=== PATIENT | male | born 1985 | race Two or more races ===

== ENCOUNTER 2020-12-10 22:33 | Emergency (ER) | payer SELFPAY ==
[~2020-12-10] VITALS: Ht 170.2 cm; Wt 75.0 kg
[2020-12-10 22:35] VITALS: BP 149/78
[2020-12-11] MEDS ORDERED: TRAMADOL 50MG TABLET PO ONE
== END 2020-12-11 03:00 | disposition home or self-care (01) ==
LOC: ER 22:33
DX: S01.21XA Laceration without foreign body of nose, initial encounter (principal); S00.83XA Contusion of other part of head, initial encounter; F12.10 Cannabis abuse, uncomplicated; Z98.890 Other specified postprocedural states; V29.88XA Motorcycle rider (driver) (passenger) injured in other specified transport accidents, initial encounter; Y93.55 Activity, bike riding; Y92.89 Other specified places as the place of occurrence of the external cause; Y99.8 Other external cause status
CPT/HCPCS: 70486; 73130; 99285

== ENCOUNTER 2020-12-15 10:44 | Emergency (ER) | payer MEDICAID ==
[~2020-12-15] VITALS: Ht 167.6 cm; Wt 134.0 kg
[2020-12-15 12:43] VITALS: BP 134/89
== END 2020-12-15 12:44 | disposition home or self-care (01) ==
LOC: ER 11:09
DX: Z48.01 Encounter for change or removal of surgical wound dressing (principal)
CPT/HCPCS: 29125; 99283

== ENCOUNTER 2025-05-28 12:04 | Emergency (ER) | payer BC, MEDICAID ==
[~2025-05-28] VITALS: Ht 172.7 cm; Wt 72.0 kg
[2025-05-28 12:19] VITALS: O2SAT 98
[2025-05-28] MEDS: LORAZEPAM 1MG TABLET PO ONE (14:14)
[2025-05-28 14:46] LABS: HEMATOCRIT 46.1 % (42.0-52.0); HEMOGLOBIN 16.4 g/dL (14.0-18.0); MEAN CORPUSCULAR HEMOGLOBIN 33.1 pg (28.0-32.0); MEAN CORPUSCULAR HGB CONC 35.6 g/dL (31.0-37.0); PLATELET 289 x1000/uL (130-400); RED BLOOD CELL COUNT 4.95 mill/uL (4.7-6.1); RED CELL DISTRIBUTION WIDTH 12.7 % (11.6-14.6); WHITE BLOOD COUNT 10.4 x1000/uL (4.5-11.0)
[2025-05-28 14:56] LABS: CHLORIDE 101 mEq/L (98-107); POTASSIUM 4.5 mEq/L (3.5-5.1); SODIUM 137 mEq/L (136-145)
[2025-05-28 14:57] LABS: CARBON DIOXIDE 27 mEq/L (21-32)
[2025-05-28 15:02] LABS: CREATININE 0.9 mg/dL (0.6-1.3); ETHANOL BLOOD < 10 mg/dL (<10); GLUCOSE 113 mg/dL (70-105); UREA NITROGEN BLOOD 8 mg/dL (9-23)
[2025-05-28 15:54] LABS: ALANINE AMINOTRANSFERASE 272 IU/L (10-49); ASPARTATE AMINOTRANSFERASE 152 IU/L (<34); BILIRUBIN DIRECT 0.2 mg/dL (<=3.0); BILIRUBIN TOTAL 0.6 mg/dL (0.1-1.0); PROTEIN TOTAL 7.8 g/dL (6.0-8.3)
[2025-05-28 18:21] VITALS: BP 153/95; PULSE 71; RESP 16; TEMP 36.5; O2SAT 99
== END 2025-05-28 18:22 | disposition home or self-care (01) ==
LOC: ER 12:04
DX: F10.20 Alcohol dependence, uncomplicated (principal); R79.89 Other specified abnormal findings of blood chemistry; Z98.890 Other specified postprocedural states; Y90.9 Presence of alcohol in blood, level not specified
CPT/HCPCS: 36415; 80048; 80076; 80320; 85027; 93005; 99284; G0480